=== PATIENT | female | born 1955 | race Caucasian/White ===

== ENCOUNTER → 2023-04-25 10:32 | Outpatient (REF) | payer OTHER, SELFPAY | LOC: RCS 10:32 | PROVIDERS: ATTENDING PHYSICIAN Internal Medicine Cardiovascular Disease; FAMILY PHYSICIAN Family Medicine | DX: Z01.810 Encounter for preprocedural cardiovascular examination (principal); I10 Essential (primary) hypertension; R00.2 Palpitations | CPT/HCPCS: 93225; 93226 ==

== ENCOUNTER 2024-08-02 22:52 | Emergency (ER) | payer OTHER, SELFPAY ==
[2024-08-02 22:56] VITALS: BP 217/117
[2024-08-02 23:20] LABS: % Basophils 0.8 % (0-2); % Eosinophils 4.6 % (0-6); % Immature Granulocytes 0.4 % (0-0.5); % Monocytes 8.4 % (1.7-9.3); % Neutrophils 52.8 % (42.2-75.2); Absolute Basophils 0.1 10^3/uL (0-0.2); Absolute Eosinophils 0.5 10^3/uL (0-0.7); Absolute Lymphocytes 3.7 10^3/uL (1.2-3.4); Hematocrit 42.8 % (37.0-47.0); Hemoglobin 14.3 g/dL (12.0-16.0); Mean Corp Hgb Conc. 33.4 g/dL (33.0-37.0); Mean Corpuscular Hgb 31.8 pg (27.0-31.0); Mean Corpuscular Volume 95.1 fL (81.0-99.0); Mean Platelet Volume 9.6 fL (7.4-10.4); Nucleated Red Blood Cells % 0 %; Platelet Count 327 10^3/uL (130-400); Red Cell Dist. Width 13.2 % (11.5-14.5); White Blood Cell Count 11.4 10^3/uL (4.8-10.8)
[2024-08-02 23:27] LABS: ALT (SGPT) 20 U/L (0-35); AST (SGOT) 23 U/L (14-36); Albumin 4.8 g/dl (3.5-5.0); Alkaline Phosphatase 84 U/L (38-126); Blood Urea Nitrogen 21 mg/dl (7-17); Calcium 9.8 mg/dl (8.4-10.2); Carbon Dioxide 23 mmol/L (22-30); Chloride 111 mmol/L (98-107); Glucose 115 mg/dl (70-99); Sodium 142 mmol/L (135-145); Total Bilirubin 0.5 mg/dl (0.2-1.3); Total Protein 7.7 g/dl (6.3-8.2); eGFR > 60.00
[2024-08-03 00:52] VITALS: BP 182/86; BMI 32.4
[2024-08-03 01:00] VITALS: BP 189/89
[2024-08-03 01:12] LABS: Urine Albumin Negative (Neg - Trace); Urine Bilirubin Negative (Negative); Urine Character Clear (Clear); Urine Color Yellow; Urine Glucose Negative (Negative); Urine Ketone Negative (Negative); Urine Leukocyte Negative (Negative); Urine Nitrite Negative (Negative); Urine Occult Blood 2+ (Negative); Urine Specific Gravity 1.025 (<1.030); Urine Urobilinogen Negative (Neg - 1+)
--- NOTE | 2024-08-03 01:15 | ED.GENMED ---
History of Present Illness
General
Chief Complaint: Blood Pressure Problem
Source: patient
Time Seen by Provider: 08/03/24 01:04
History of Present Illness
History of Present Illness:
68-year-old female presents to the emergency room complaining of a abnormal sound in her left ear and elevated blood pressure. Patient began experiencing this symptom after starting amlodipine. Her doctor prescribed amlodipine because her blood
pressure was not well-controlled. Patient also takes losartan. In addition she felt some paresthesias in her left arm. She is also describing a discomfort in her left lateral thorax which is worse with movement. No anterior chest discomfort. No
shortness of breath. No focal weakness.
Past History
Past History
ED Past Medical History: Asthma, GERD, HTN, Hypercholesterolemia and Other (Ulcer); Negative NIDDM
ED Past Surgical History: Appendectomy and Gynecological (Uterine rebuilt)
Social History
Tobacco: Former smoker
Alcohol: Occasional (Wine)
Drug: None
Personal:
Living: with family
Phy Exam
Physical Exam
Physical Exam:
General: Awake, Alert, Oriented X3. No acute distress.
Vitals: Hypertensive
Head: Atraumatic
Eyes: Pupils equal, EOMI
Throat: Airway intact, no exudates
Neck: Trachea midline
Chest: Some point tenderness to the lateral thoracic musculature
Lungs: Clear and equal b/l
Heart: Regular rate, no murmurs
Abd: Soft, Nontender, No pulsatile mass
Neuro: Cranial nerves intact, muscle strength equal bilaterally, cerebellar exam normal
Skin: Warm, dry, no rash
Extremities: pulses equal b/l, no edema
Course
Orders/Labs/Results
Orders:
Orders
08/02/24 22:58
EKG [Electrocardiogram (*1)] Urgent
Reason for Study: Vertigo / Dizzy
EKG- Treatment ONCE
08/02/24 23:06
Complete Blood Count/With Diff Urgent
Comprehensive Metabolic Panel Urgent
08/03/24
CT Head W/o Iv Contrast Urgent
Reason For Exam: tinnitus
08/03/24 01:00
Urinalysis Reflex To Culture Urgent
Date Specimen was Collected: 08/03/24
Time Specimen was Collected: 00:58
Urine Microscopic Reflex Cult Urgent
Urine Culture Urgent
SILVANO Source: U
Specimen Description:
Date Specimen was Collected: 08/03/24
Time Specimen was Collected: 00:58
08/03/24 03:47
Meclizine [Antivert] 25 mg PO NOW STA
Abnormal Lab Results
08/02/24 08/03/24
23:06 01:00
WBC 11.4 H 10^3/uL
(4.8-10.8)
MCH 31.8 H pg
(27.0-31.0)
Absolute Lymphs (auto) 3.7 H 10^3/uL
(1.2-3.4)
Absolute Monos (auto) 1.0 H 10^3/uL
(0.1-0.6)
Chloride 111 H mmol/L
(98-107)
BUN 21 H mg/dl
(7-17)
Creatinine 0.5 L mg/dL
(0.6-1.0)
Glucose 115 H mg/dl
(70-99)
Ur Occult Blood Reflex 2+ A
(Negative)
Urine RBC 3-6 A /HPF
(0-2)
Urine Bacteria (Reflex) Moderate A
(Negative)
08/02/24 23:06
08/02/24 23:06
Vital Signs
Initial and Last Documented VS:
Initial Vital Signs
Temp Pulse Resp BP Pulse Ox
98.4 F 74 16 217/117 97
08/02/24 22:56 08/02/24 22:56 08/02/24 22:56 08/02/24 22:56 08/02/24 22:56
Last Documented Vital Signs
Temp Pulse Resp BP Pulse Ox
98.4 F 75 27 159/75 98
08/02/24 22:56 08/03/24 02:30 08/03/24 02:30 08/03/24 03:06 08/03/24 02:30
MDM/Problems Addressed
Differential Diagnosis Includes:
Uncontrolled hypertension, tenderness, intracranial lesion, electrolyte abnormality
MDM/Problems Addressed:
Patient presents with fairly high blood pressure which greatly improved without intervention. Neurologic exam is nonfocal. Head CT shows no acute abnormalities. Urinalysis is contaminated with skin cells but it is not particularly concerning for
infection. She does not have any albumin in her urine. There is no signs for endorgan dysfunction with her elevated blood pressure. Of note the patient states that her primary care doctor has tried her many blood pressure medications and she has
adverse effects from any of them. Most recently she was tried on amlodipine and she associates the tinnitus with the initiation of amlodipine. Therefore we will not try to start any blood pressure medication here. She is already on losartan. Her
primary care can titrate her blood pressure medications. No evidence for an unstable process at this time.
*Pulse Oximetry
Patient hypoxic: no
*EKG
Interpreted by ED Provider?: Yes
Heart Rate: 68
Rate: normal
Rhythm: sinus
[place]: normal axis
Interval: normal interval
QRS Pattern: normal QRS
Ischemia: no ischemia
*Armament Installer Interpretation
Rate: normal
Interpretation: normal
Rhythm: sinus
*Critical Care Note
Total Time (30-74mins, 75-104mins- exclusive of procedures): Not Applicable
ED Attending Note
-
Portions of this chart may have been created with voice recognition software.� Occasional wrong word or��sound alike� substitutions may have occurred due to the inherent limitations of voice recognition software.
Discharge Plan
Departure
Patient Disposition: Home (Routine Discharge)
Date of Disposition: 08/03/24
Time of Disposition: 03:47
Patient with high blood pressure during this ER visit?: No
Condition: Good
Discharge Problem:
Headache, Tinnitus
Prescriptions:
No Action
ascorbic acid (vitamin C) [Vitamin C] 250 mg Tablet
250 mg PO DAILY
Centrum Chewables 8 mg-400 mcg- 10 mcg Tablet,Chewable
1 tab PO DAILY
losartan 25 mg Tablet
50 mg PO DAILY
albuterol 90 mcg/actuation Aerosol
90 mcg INHALATION PRN PRN (Reason: sob)
Arnuity Ellipta 100 mcg/actuation Blister With Device
1 inh INHALATION DAILY
cetirizine 10 mg Tablet
10 mg PO DAILY
mometasone 50 mcg/actuation [place],Non-Aerosol
1 spray INTRANASAL DAILY
azelastine 137 mcg (0.1 %) [place],Non-Aerosol
1 spray INTRANASAL DAILY
Referrals:
Jann Dimas MD [Family Provider, Internal Medicine]
Polly Solis MD [Active, Otology]
Activity Restrictions/Additional Instructions:
Come to the emergency room for evaluation of whooshing in your left ear and headache. Blood pressure was elevated on arrival but it has improved without any specific treatment. Your testing here shows no significant abnormalities. There is no
evidence of a urinary tract infection on your urinalysis. The specimen was actually not a great specimen with a lot of skin cells. Your head CT shows no acute abnormality. I have given you contact information for Dr. Solis who is an ears nose
and throat specialist you can follow-up with her about your tinnitus. You can try meclizine which is an [id number] medication to see if that helps.
Interventions
Interventions:
*Risk Screen - Suicide Last Done: 08/02/24 22:56
*General Assessment Last Done: 08/02/24 22:56
*Neglect/Abuse Screening Last Done: 08/02/24 22:56
*ED- Fall Risk Assessment Last Done: 08/02/24 22:56
*ED COVID-19 Vaccine History Last Done: 08/02/24 22:56
*Nursing Disposition Last Done: 08/03/24 03:50
ED- Cardiac Assessment Last Done: 08/03/24 01:09
ED- Neurological Assessment Last Done: 08/03/24 01:09
ED- Pulmonary Assessment Last Done: 08/03/24 01:09
Discharge Date and Time
Discharge Date/Time: 08/03/24 04:01
Print Language: NORWE[place]
[2024-08-03 01:35] VITALS: BP 170/96
[2024-08-03 02:00] VITALS: BP 169/98
[2024-08-03 02:18] LABS: Urine Squamous Cell >30 /LPF (Few)
[2024-08-03 02:20] LABS: Urine Bacteria Moderate (Negative); Urine Mucus Moderate
[2024-08-03 03:06] VITALS: BP 159/75
[2024-08-03] MEDS: ANTIVERT 25 MG PO (03:50)
== END 2024-08-03 04:01 | disposition home or self-care (01) ==
LOC: EMR 22:52
PROVIDERS: Emergency Medicine; EMERGENCY PHYSICIAN Emergency Medicine; FAMILY PHYSICIAN Student in an Organized Health Care Education/Training Program
DX: R51.9 Headache, unspecified (principal); H93.19 Tinnitus, unspecified ear; R20.2 Paresthesia of skin; I10 Essential (primary) hypertension; E78.00 Pure hypercholesterolemia, unspecified; J45.909 Unspecified asthma, uncomplicated; Z87.891 Personal history of nicotine dependence; Z79.899 Other long term (current) drug therapy
CPT/HCPCS: 99284; 70450; 80053; 81003; 81015; 85025; 87086; 93005

== ENCOUNTER 2024-08-23 06:29 | Day surgery (SDC) | payer OTHER, SELFPAY | END 2024-08-23 12:24 | disposition home or self-care (01) | LOC: GI 06:29 | PROVIDERS: ATTENDING PHYSICIAN Student in an Organized Health Care Education/Training Program | DX: R10.13 Epigastric pain (principal); K31.7 Polyp of stomach and duodenum; K20.90 Esophagitis, unspecified without bleeding; K31.A0 Gastric intestinal metaplasia, unspecified; K29.50 Unspecified chronic gastritis without bleeding | CPT/HCPCS: 43239; 88305; 88342 ==

== ENCOUNTER → 2024-10-13 07:41 | Outpatient (REF) | payer SELFPAY | LOC: HWRAD 07:41 | PROVIDERS: ATTENDING PHYSICIAN Internal Medicine Cardiovascular Disease; FAMILY PHYSICIAN Student in an Organized Health Care Education/Training Program | DX: Z71.89 Other specified counseling (principal); E78.00 Pure hypercholesterolemia, unspecified | CPT/HCPCS: 75571 ==

== ENCOUNTER → 2024-11-11 12:22 | Outpatient (REF) | payer OTHER, SELFPAY ==
[2024-11-11 12:52] VITALS: BP 142/75; BP_SYST 87
== END ==
LOC: RADI 12:22
PROVIDERS: ATTENDING PHYSICIAN Podiatrist; FAMILY PHYSICIAN Student in an Organized Health Care Education/Training Program
DX: G57.62 Lesion of plantar nerve, left lower limb (principal); M79.672 Pain in left foot; M79.671 Pain in right foot
CPT/HCPCS: 64455; 76882

== ENCOUNTER → 2025-01-24 14:11 | Outpatient (REF) | payer OTHER, SELFPAY | LOC: PAVMRI 14:11 | PROVIDERS: ATTENDING PHYSICIAN Student in an Organized Health Care Education/Training Program; FAMILY PHYSICIAN Student in an Organized Health Care Education/Training Program | DX: R10.13 Epigastric pain (principal) | CPT/HCPCS: 74183; A9575 ==